=== PATIENT | female | born 1940 | race Caucasian/White ===

== ENCOUNTER → 2017-03-08 | Outpatient (CLI) | payer MEDICARE ==
[~2017-03-08] MED LIST: AMLO5TAB4 PO; ASPI325T4 PO; CEFT2FRO2 IV; CHOL20002 PO; DOCO1CAP2 PO; DOCU250C24 PO; GABA100C8 PO; LISI-170 PO; METH750T2 PO; MORP15TA PO; NITR0.4T8 SL; OMEP-110 PO; ONDA4TAB10 PO; REGADENOSON 0.4 MG/5 ML SYRINGE ONE; SIMV20TA3 PO; UBID100T5 PO
== END | disposition home or self-care (01) ==
LOC: CFH 07:25
PROVIDERS: ATTEND Internal Medicine Cardiovascular Disease
DX: I08.3 Combined rheumatic disorders of mitral, aortic and tricuspid valves (principal); I37.1 Nonrheumatic pulmonary valve insufficiency
CPT/HCPCS: 78452; 93017; 93306; A9502; J2785

== ENCOUNTER 2018-01-22 12:41 | Inpatient (IN) | payer MEDICARE ==
[~2018-01-22] VITALS: Ht 160 cm; Wt 96.8 kg
[~2018-01-22 12:41] MED LIST changes: +ASPI325T17 PO; -ASPI325T4 PO; +GABA-826 PO; -GABA100C8 PO; +NITR0.4T28 SL; -NITR0.4T8 SL; -REGADENOSON 0.4 MG/5 ML SYRINGE ONE
[2018-01-22] MEDS ORDERED: SODIUM CHLORIDE FLUSH 10ML SYR IVF ONE (13:00)
[2018-01-22] MEDS ORDERED: SODIUM CHLORIDE 0.9% 1,000ML IVBOLUS ONE (13:30)
[2018-01-22 13:35] LABS: BASOPHILS # (AUTO) 0.02 x10^3/uL (0-0.1); BASOPHILS % (AUTO) 0 % (0-1); EOSINOPHILS % (AUTO) 2 % (1-7); LYMPHOCYTES # (AUTO) 0.79 x10^3/uL (1-3.4); LYMPHOCYTES % (AUTO) 9 % (22-44); MD NO; MEAN CORPUSCULAR HEMOGLOBIN 29.3 pg (27.0-34.8); MEAN CORPUSCULAR HGB CONC 33.2 g/dL (32.4-35.8); MEAN CORPUSCULAR VOLUME 88.5 fL (80-100); MEAN PLATELET VOLUME 8.2 fL (7.4-10.4); MONOCYTES # (AUTO) 0.53 x10^3/uL (0.2-0.8); MONOCYTES % (AUTO) 6 % (2-9); NEUTROPHILS # (AUTO) 6.97 x10^3/uL (1.8-6.8); NEUTROPHILS % (AUTO) 82 % (42-75); PLATELET COUNT 283 x10^3/uL (130-400); RED CELL DISTRIBUTION WIDTH 14.2 % (9.6-15.2)
[2018-01-22 13:40] LABS: INTERNATIONAL NORMALIZED RATIO 1.06 (0.93-1.1); PROTHROMBIN TIME 10.9 Seconds (9.6-11.5)
[2018-01-22 13:45] LABS: ALANINE AMINOTRANSFERASE 16 U/L (12-78); ANION GAP 12 mmol/L (5-15); CALCIUM 8.2 mg/dL (8.5-10.1); CHLORIDE 112 mmol/L (98-107)
[2018-01-22 13:51] LABS: ALKALINE PHOSPHATASE 64 U/L (45-117); BILIRUBIN,TOTAL 1.1 mg/dL (0.2-1.0); T4 (THYROXINE) 11.1 mcg/dL (4.8-13.9); TOTAL PROTEIN 6.4 g/dL (6.4-8.2); TROPONIN I < 0.015 ng/mL (0.000-0.045)
[2018-01-22] MEDS ORDERED: SODIUM CHLORIDE 0.9%, 500ML IVBOLUS ONE (14:30)
[2018-01-22] MEDS ORDERED: VERAPAMIL 2.5 MG/ML, 2ML ONE (14:52)
[2018-01-22] MEDS ORDERED: VERAPAMIL 2.5 MG/ML, 2ML IVPush ONE (15:00)
[2018-01-22] MEDS ORDERED: PLEASE ENTER HEIGHT AND WEIGHT MC SCH (15:00)
[2018-01-22] MEDS ORDERED: OMNIPAQUE 350 MG/ML, 100ML BOTTLE ONE (15:35)
[2018-01-22] MEDS ORDERED: ONDANSETRON ODT 4 MG PO PRN (16:00)
[2018-01-22] MEDS ORDERED: LACTATED RINGERS 1,000 ML IV SCH (16:00)
[2018-01-22] MEDS ORDERED: LOSA50TA6 PO (16:09)
[2018-01-22] MEDS ORDERED: ROSU5TAB PO (16:09)
[2018-01-22] MEDS ORDERED: ASPI-496 PO (16:09)
[2018-01-22] MEDS ORDERED: NAPR220C2 PO (16:09)
[2018-01-22] MEDS ORDERED: METOPROLOL TARTRATE 25 MG TABLET PO SCH (16:30)
[2018-01-22] MEDS ORDERED: METOPROLOL MC SCH (17:00)
[2018-01-22] MEDS: ENOXAPARIN 100 MG/ML SQ SCH (17:34)
[2018-01-22] MEDS ORDERED: METOPROLOL TARTRATE 25 MG TABLET ONE (17:45)
[2018-01-22] MEDS: METOPROLOL TARTRATE 25 MG TABLET PO SCH ×2 (17:47→21:49)
[2018-01-22] MEDS: SODIUM BICARBONATE 8.4% 75 MEQ in DEXTROSE 5% 1,000 ML IV SCH (18:17)
[2018-01-22 19:12] VITALS: BP 115/74
[2018-01-22] MEDS ORDERED: APIXABAN 5 MG TABLET PO SCH (21:00)
[2018-01-22] MEDS: ASPIRIN 81 MG TABLET EC PO SCH (21:47)
[2018-01-23 01:24] VITALS: BP 103/69
[2018-01-23] MEDS: SODIUM BICARBONATE 8.4% 75 MEQ in DEXTROSE 5% 1,000 ML IV SCH ×2 (04:33→14:30)
[2018-01-23] MEDS: ENOXAPARIN 100 MG/ML SQ SCH (04:33)
[2018-01-23] MEDS: METOPROLOL TARTRATE 25 MG TABLET PO SCH ×3 (04:34→16:35)
[2018-01-23 04:38] VITALS: BP 117/70
[2018-01-23 04:44] LABS: MICROSCOPIC NOT IND
[2018-01-23 04:46] LABS: CULTURE INDICATED? NO
[2018-01-23 05:02] LABS: BASOPHILS # (AUTO) 0.06 x10^3/uL (0-0.1); BASOPHILS % (AUTO) 1 % (0-1); EOSINOPHILS # (AUTO) 0.45 x10^3/uL (0-0.4); EOSINOPHILS % (AUTO) 5 % (1-7); LYMPHOCYTES # (AUTO) 1.72 x10^3/uL (1-3.4); LYMPHOCYTES % (AUTO) 19 % (22-44); MD NO; MEAN CORPUSCULAR HEMOGLOBIN 29.8 pg (27.0-34.8); MEAN CORPUSCULAR HGB CONC 33.9 g/dL (32.4-35.8); MEAN CORPUSCULAR VOLUME 87.8 fL (80-100); MEAN PLATELET VOLUME 8.5 fL (7.4-10.4); MONOCYTES # (AUTO) 0.75 x10^3/uL (0.2-0.8); MONOCYTES % (AUTO) 8 % (2-9); NEUTROPHILS # (AUTO) 5.93 x10^3/uL (1.8-6.8); NEUTROPHILS % (AUTO) 67 % (42-75); PLATELET COUNT 284 x10^3/uL (130-400); RED BLOOD COUNT 4.23 x10^6/uL (3.82-5.3); RED CELL DISTRIBUTION WIDTH 13.9 % (9.6-15.2)
[2018-01-23 05:11] LABS: ALANINE AMINOTRANSFERASE 15 U/L (12-78); ALBUMIN 2.8 g/dL (3.4-5.0); ANION GAP 8 mmol/L (5-15); CALCIUM 7.8 mg/dL (8.5-10.1); CHLORIDE 112 mmol/L (98-107); CREATININE 0.91 mg/dL (0.55-1.02)
[2018-01-23 05:13] LABS: ALKALINE PHOSPHATASE 60 U/L (45-117); BILIRUBIN,TOTAL 0.6 mg/dL (0.2-1.0); TOTAL PROTEIN 5.8 g/dL (6.4-8.2)
[2018-01-23 07:01] VITALS: BP 117/60
[2018-01-23] MEDS: ASPIRIN 81 MG TABLET EC PO SCH (08:40)
[2018-01-23 12:13] VITALS: BP 107/77
[2018-01-23] MEDS ORDERED: POTASSIUM CHLORIDE 20 MEQ TAB.ER.PRT PO ONE (15:00)
[2018-01-23 18:31] VITALS: BP 99/63
[2018-01-23] MEDS: ZOLPIDEM 5MG TABLET PO PRN (20:37)
[2018-01-23] MEDS: APIXABAN 5 MG TABLET PO SCH (20:37)
[2018-01-24 01:22] VITALS: BP 132/76
[2018-01-24] MEDS: METOPROLOL TARTRATE 25 MG TABLET PO SCH ×3 (01:24→17:26)
[2018-01-24 07:20] VITALS: BP 132/92
[2018-01-24] MEDS: APIXABAN 5 MG TABLET PO SCH ×2 (09:11→21:49)
[2018-01-24 13:17] VITALS: BP 110/72
[2018-01-24] MEDS ORDERED: ACETAMINOPHEN 325 MG TABLET PO PRN (15:30)
[2018-01-24 17:26] VITALS: BP 124/75
[2018-01-24 20:27] VITALS: BP 128/91
[2018-01-25 00:20] VITALS: BP 113/74
[2018-01-25] MEDS: ZOLPIDEM 5MG TABLET PO PRN ×2 (00:24→23:40)
[2018-01-25] MEDS: METOPROLOL TARTRATE 25 MG TABLET PO SCH (00:25)
[2018-01-25 07:10] VITALS: BP 104/83
[2018-01-25] MEDS: APIXABAN 5 MG TABLET PO SCH ×2 (09:49→21:02)
[2018-01-25 13:50] VITALS: BP 106/72
[2018-01-25] MEDS: METOPROLOL TARTRATE 100 MG TABLET PO SCH ×2 (16:14→23:40)
[2018-01-25 19:38] VITALS: BP 121/85
[2018-01-25 23:39] VITALS: BP 116/78
[2018-01-26 06:47] VITALS: BP 127/77
[2018-01-26 08:25] VITALS: BP 114/77
[2018-01-26] MEDS: METOPROLOL TARTRATE 100 MG TABLET PO SCH (08:44)
[2018-01-26] MEDS: APIXABAN 5 MG TABLET PO SCH (08:45)
[2018-01-26] MEDS ORDERED: APIX5TAB4 PO (09:57)
[2018-01-26] MEDS ORDERED: APIX5TAB PO (09:57)
[2018-01-26] MEDS ORDERED: METO-99 PO (09:57)
[2018-01-30] MEDS ORDERED: APIXABAN 5 MG TABLET PO SCH (21:00)
== END 2018-01-26 13:40 | disposition home or self-care (01) | DRG 308 ==
LOC: ED 14:53 → EDIP 14:54 → ED 15:22 → 5SO 16:21 → DCLOUNGE 01-26 13:20
PROVIDERS: ADMIT Internal Medicine Pulmonary Disease; ATTEND Internal Medicine Pulmonary Disease
DX: I48.91 Unspecified atrial fibrillation (principal); I26.99 Other pulmonary embolism without acute cor pulmonale; N17.9 Acute kidney failure, unspecified; E87.2 Acidosis; D68.69 Other thrombophilia; I95.9 Hypotension, unspecified; E44.1 Mild protein-calorie malnutrition; I08.0 Rheumatic disorders of both mitral and aortic valves; G47.30 Sleep apnea, unspecified; E66.9 Obesity, unspecified; E78.5 Hyperlipidemia, unspecified; E87.6 Hypokalemia; R73.9 Hyperglycemia, unspecified; I10 Essential (primary) hypertension; K21.9 Gastro-esophageal reflux disease without esophagitis; Z79.01 Long term (current) use of anticoagulants; Z79.82 Long term (current) use of aspirin; Z79.899 Other long term (current) drug therapy; Z82.3 Family history of stroke; Z82.49 Family history of ischemic heart disease and other diseases of the circulatory system; Z87.891 Personal history of nicotine dependence; Z90.49 Acquired absence of other specified parts of digestive tract; Z90.710 Acquired absence of both cervix and uterus; Z96.649 Presence of unspecified artificial hip joint; Z96.652 Presence of left artificial knee joint; Z68.37 Body mass index [BMI] 37.0-37.9, adult
CPT/HCPCS: 36415; 71045; 71275; 80053; 81003; 83735; 84100; 84436; 84443; 84484; 85025; 85610; 93005; 93306; 96361; 96374; J1650; J7070; Q9967; J7030; J7040

== ENCOUNTER 2018-02-01 09:20 | Emergency (ER) | payer MEDICARE ==
[~2018-02-01] VITALS: Ht 160 cm; Wt 88.9 kg
[~2018-02-01 09:20] MED LIST changes: +APIX5TAB PO; +APIX5TAB4 PO; +ASPI-496 PO; +LOSA50TA6 PO; +METO-99 PO; +NAPR220C2 PO; +ROSU5TAB PO
[2018-02-01] MEDS ORDERED: METO-99 PO (10:17)
[2018-02-01 11:05] LABS: BASOPHILS # (AUTO) 0.04 x10^3/uL (0-0.1); BASOPHILS % (AUTO) 1 % (0-1); EOSINOPHILS # (AUTO) 0.07 x10^3/uL (0-0.4); EOSINOPHILS % (AUTO) 1 % (1-7); LYMPHOCYTES % (AUTO) 12 % (22-44); MD NO; MEAN CORPUSCULAR HEMOGLOBIN 29.1 pg (27.0-34.8); MEAN CORPUSCULAR VOLUME 88.2 fL (80-100); MEAN PLATELET VOLUME 8.6 fL (7.4-10.4); MONOCYTES # (AUTO) 0.47 x10^3/uL (0.2-0.8); MONOCYTES % (AUTO) 7 % (2-9); NEUTROPHILS # (AUTO) 5.09 x10^3/uL (1.8-6.8); NEUTROPHILS % (AUTO) 79 % (42-75); PLATELET COUNT 267 x10^3/uL (130-400); RED CELL DISTRIBUTION WIDTH 14.7 % (9.6-15.2)
[2018-02-01 11:09] LABS: INTERNATIONAL NORMALIZED RATIO 1.13 (0.93-1.1); PROTHROMBIN TIME 11.6 Seconds (9.6-11.5)
[2018-02-01 11:14] LABS: ANION GAP 8 mmol/L (5-15); CALCIUM 8.1 mg/dL (8.5-10.1); CHLORIDE 116 mmol/L (98-107)
[2018-02-01 11:20] LABS: ALANINE AMINOTRANSFERASE 70 U/L (12-78); ALKALINE PHOSPHATASE 82 U/L (45-117); BILIRUBIN,TOTAL 0.9 mg/dL (0.2-1.0); CREATININE 1.01 mg/dL (0.55-1.02); TOTAL PROTEIN 6.3 g/dL (6.4-8.2); TROPONIN I < 0.015 ng/mL (0.000-0.045)
[2018-02-01] MEDS ORDERED: DIGOXIN 0.25 MG/ML, 2ML IVPush ONE (11:30)
[2018-02-01] MEDS ORDERED: DIGOXIN 0.25 MG/ML, 2ML ONE (11:33)
[2018-02-01 14:42] VITALS: BP 129/68
== END 2018-02-01 14:53 | disposition home or self-care (01) ==
LOC: ED 12:21
DX: I48.91 Unspecified atrial fibrillation (principal)
CPT/HCPCS: 36415; 71045; 80053; 83880; 84484; 85025; 85610; 93005; 93971; 96374; 99285; J1160

== ENCOUNTER 2018-02-23 23:38 | Inpatient (IN) | payer MEDICARE ==
[~2018-02-23] VITALS: Ht 170.2 cm; Wt 84.3 kg
[~2018-02-23 23:38] MED LIST changes: +DIGO125T PO; +METO-264 PO
[2018-02-24] MEDS ORDERED: PROPOFOL 10 MG/ML, 20ML IVPush ONE
[2018-02-24] MEDS ORDERED: SODIUM CHLORIDE FLUSH 10ML SYR IVF ONE
[2018-02-24 00:20] LABS: BASOPHILS # (AUTO) 0.03 x10^3/uL (0-0.1); BASOPHILS % (AUTO) 0 % (0-1); EOSINOPHILS % (AUTO) 3 % (1-7); LYMPHOCYTES # (AUTO) 1.43 x10^3/uL (1-3.4); LYMPHOCYTES % (AUTO) 19 % (22-44); MD NO; MEAN CORPUSCULAR HEMOGLOBIN 28.5 pg (27.0-34.8); MEAN CORPUSCULAR HGB CONC 32.8 g/dL (32.4-35.8); MEAN CORPUSCULAR VOLUME 86.8 fL (80-100); MEAN PLATELET VOLUME 8.2 fL (7.4-10.4); MONOCYTES # (AUTO) 0.63 x10^3/uL (0.2-0.8); MONOCYTES % (AUTO) 9 % (2-9); NEUTROPHILS # (AUTO) 5.18 x10^3/uL (1.8-6.8); NEUTROPHILS % (AUTO) 69 % (42-75); PLATELET COUNT 238 x10^3/uL (130-400); RED BLOOD COUNT 4.51 x10^6/uL (3.82-5.3); RED CELL DISTRIBUTION WIDTH 14.7 % (9.6-15.2)
[2018-02-24] MEDS ORDERED: PROPOFOL 10 MG/ML, 20ML ONE (00:27)
[2018-02-24 00:31] LABS: ANION GAP 8 mmol/L (5-15); CALCIUM 8.4 mg/dL (8.5-10.1); CHLORIDE 114 mmol/L (98-107); CREATININE 1.01 mg/dL (0.55-1.02)
[2018-02-24 00:32] LABS: ALANINE AMINOTRANSFERASE 14 U/L (12-78)
[2018-02-24 00:34] LABS: ALKALINE PHOSPHATASE 69 U/L (45-117); BILIRUBIN,TOTAL 0.4 mg/dL (0.2-1.0); TOTAL PROTEIN 6.3 g/dL (6.4-8.2)
[2018-02-24 00:38] LABS: MICROSCOPIC AUTO
[2018-02-24 00:42] LABS: CULTURE INDICATED? YES
[2018-02-24] MEDS ORDERED: METOPROLOL 1 MG/ML, 5ML IVPush ONE (01:00)
[2018-02-24] MEDS ORDERED: METOPROLOL 1 MG/ML, 5ML ONE (01:14)
[2018-02-24 02:27] VITALS: BP 128/81
[2018-02-24] MEDS ORDERED: OXYcodone IR 5MG TABLET PO PRN (03:00)
[2018-02-24] MEDS ORDERED: ONDANSETRON ODT 4 MG PO PRN (03:00)
[2018-02-24] MEDS ORDERED: ONDANSETRON 2MG/ML, 2ML IVPush PRN (03:00)
[2018-02-24] MEDS ORDERED: hydrALAzine 20 MG/ML, 1ML IVPush PRN (03:00)
[2018-02-24] MEDS ORDERED: LABETALOL 5MG/ML, 20ML IVPush PRN (03:00)
[2018-02-24] MEDS ORDERED: DOCUSATE 100 MG CAPSULE PO PRN (03:00)
[2018-02-24] MEDS ORDERED: ACETAMINOPHEN 325 MG TABLET PO PRN (03:00)
[2018-02-24] MEDS ORDERED: BISACODYL 10 MG SUPP PR PRN (03:00)
[2018-02-24] MEDS ORDERED: morphine SULFATE 10 MG/ML, 1ML IVPush PRN (03:00)
[2018-02-24] MEDS ORDERED: PROMETHAZINE 25 MG/ML, 1ML IM PRN (03:00)
[2018-02-24] MEDS ORDERED: POLYETHYLENE GLYCOL 17 GM PACKET PO PRN (03:00)
[2018-02-24 03:26] LABS: FREE T4 (FREE THYROXINE) 1.2 ng/dL (0.76-1.46); THYROID STIMULATING HORMONE 2.05 mIU/L (0.358-3.740)
[2018-02-24 03:47] LABS: HEMOGLOBIN A1C 5.6 % (4.2-6.3)
[2018-02-24 06:06] LABS: TROPONIN I 0.024 ng/mL (0.000-0.045)
[2018-02-24 07:36] VITALS: BP 136/76
[2018-02-24 07:40] VITALS: BP 120/78
[2018-02-24] MEDS: METOPROLOL SUCCINATE 100 MG TAB.ER.24H PO SCH (07:41)
[2018-02-24] MEDS: APIXABAN 5 MG TABLET PO SCH ×2 (07:41→21:26)
[2018-02-24] MEDS: CHOLECALCIFEROL 1,000 UNIT TABLET PO SCH ×2 (07:41→21:26)
[2018-02-24] MEDS ORDERED: AMIODARONE 50 MG/ML, 3ML IVPush ONE (10:30)
[2018-02-24] MEDS ORDERED: AMIODARONE 150 MG in DEXTROSE 5% 100 ML IV ONE (11:00)
[2018-02-24] MEDS ORDERED: FILTER 0.22 MICRON IV ONE (11:00)
[2018-02-24 12:11] LABS: TROPONIN I 0.024 ng/mL (0.000-0.045)
[2018-02-24] MEDS: AMIODARONE 200 MG TABLET PO SCH ×3 (12:20→21:26)
[2018-02-24 14:18] VITALS: BP 119/80
[2018-02-24 19:22] VITALS: BP 127/81
[2018-02-24] MEDS ORDERED: LOSARTAN 50MG TABLET PO SCH (21:00)
[2018-02-24] MEDS: TEMPLATE NON-FORMULARY MED. (Rosuvastatin Calcium** (Crestor**) 5 MG) HOMEMEDPO SCH (21:26)
[2018-02-25 04:05] VITALS: BP 123/73
[2018-02-25 05:29] LABS: BASOPHILS # (AUTO) 0.04 x10^3/uL (0-0.1); BASOPHILS % (AUTO) 1 % (0-1); EOSINOPHILS # (AUTO) 0.19 x10^3/uL (0-0.4); EOSINOPHILS % (AUTO) 3 % (1-7); LYMPHOCYTES # (AUTO) 1.36 x10^3/uL (1-3.4); LYMPHOCYTES % (AUTO) 23 % (22-44); MD NO; MEAN CORPUSCULAR HEMOGLOBIN 29.1 pg (27.0-34.8); MEAN CORPUSCULAR HGB CONC 33.5 g/dL (32.4-35.8); MEAN CORPUSCULAR VOLUME 86.7 fL (80-100); MEAN PLATELET VOLUME 8.3 fL (7.4-10.4); MONOCYTES # (AUTO) 0.53 x10^3/uL (0.2-0.8); MONOCYTES % (AUTO) 9 % (2-9); NEUTROPHILS # (AUTO) 3.92 x10^3/uL (1.8-6.8); NEUTROPHILS % (AUTO) 65 % (42-75); PLATELET COUNT 220 x10^3/uL (130-400); RED BLOOD COUNT 4.53 x10^6/uL (3.82-5.3); RED CELL DISTRIBUTION WIDTH 14.7 % (9.6-15.2)
[2018-02-25 05:37] LABS: ALBUMIN 2.7 g/dL (3.4-5.0); ANION GAP 9 mmol/L (5-15); CALCIUM 8.1 mg/dL (8.5-10.1); CHLORIDE 114 mmol/L (98-107)
[2018-02-25 05:42] LABS: ALANINE AMINOTRANSFERASE 12 U/L (12-78); ALKALINE PHOSPHATASE 63 U/L (45-117); BILIRUBIN,TOTAL 0.7 mg/dL (0.2-1.0); CHOL/HDL RATIO 2.5; CHOLESTEROL, TOTAL 124 mg/dL (140-239); HDL CHOL % 40 % (28-40); HDL CHOLESTEROL (DIRECT) 49 mg/dL (40-60); LDL CHOLESTEROL,CALCULATED 56 mg/dL (54-169); LDL/HDL RATIO 1.1 (0.5-3.0); TOTAL PROTEIN 5.7 g/dL (6.4-8.2); TRIGLYCERIDES 95 mg/dL (50-200); VLDL CHOLESTEROL 19 mg/dL (0-25)
[2018-02-25 08:04] VITALS: BP 127/89
[2018-02-25] MEDS: CHOLECALCIFEROL 1,000 UNIT TABLET PO SCH ×2 (08:19→20:49)
[2018-02-25] MEDS: AMIODARONE 200 MG TABLET PO SCH ×3 (08:19→20:50)
[2018-02-25] MEDS: METOPROLOL SUCCINATE 100 MG TAB.ER.24H PO SCH (08:19)
[2018-02-25] MEDS: APIXABAN 5 MG TABLET PO SCH ×2 (08:19→20:50)
[2018-02-25 14:14] VITALS: BP 121/78
[2018-02-25 19:41] VITALS: BP 111/69
[2018-02-25] MEDS: LOSARTAN 50MG TABLET PO SCH (20:49)
[2018-02-25] MEDS: TEMPLATE NON-FORMULARY MED. (Rosuvastatin Calcium** (Crestor**) 5 MG) HOMEMEDPO SCH (20:50)
[2018-02-26 02:03] VITALS: BP 126/85
[2018-02-26 06:50] VITALS: BP 128/80
[2018-02-26] MEDS: APIXABAN 5 MG TABLET PO SCH ×2 (08:26→20:15)
[2018-02-26] MEDS: CHOLECALCIFEROL 1,000 UNIT TABLET PO SCH ×2 (08:26→20:15)
[2018-02-26] MEDS: AMIODARONE 200 MG TABLET PO SCH ×2 (08:26→20:57)
[2018-02-26] MEDS: POTASSIUM CHLORIDE 20 MEQ TAB.ER.PRT PO SCH ×2 (10:06→17:32)
[2018-02-26] MEDS ORDERED: PROPOFOL 10 MG/ML, 20ML ONE (11:09)
[2018-02-26 13:28] VITALS: BP 115/66
[2018-02-26 17:41] LABS: CLOSTRIDIUM DIFFICILE ANTIGEN NEGATIVE; CLOSTRIDIUM DIFFICILE TOXIN NEGATIVE (Negative)
[2018-02-26 18:20] VITALS: BP 123/80
[2018-02-26 19:57] VITALS: BP 123/84
[2018-02-26] MEDS: TEMPLATE NON-FORMULARY MED. (Rosuvastatin Calcium** (Crestor**) 5 MG) HOMEMEDPO SCH (19:59)
[2018-02-26] MEDS: LOSARTAN 50MG TABLET PO SCH (20:15)
[2018-02-27 01:46] VITALS: BP 131/69
[2018-02-27 05:14] LABS: ANION GAP 6 mmol/L (5-15); CHLORIDE 111 mmol/L (98-107)
[2018-02-27 05:15] LABS: CREATININE 1.22 mg/dL (0.55-1.02)
[2018-02-27 07:25] VITALS: BP 118/69
[2018-02-27] MEDS: AMIODARONE 200 MG TABLET PO SCH (09:35)
[2018-02-27] MEDS: POTASSIUM CHLORIDE 20 MEQ TAB.ER.PRT PO SCH (09:35)
[2018-02-27] MEDS: APIXABAN 5 MG TABLET PO SCH (09:36)
[2018-02-27] MEDS: CHOLECALCIFEROL 1,000 UNIT TABLET PO SCH (09:36)
[2018-02-27] MEDS ORDERED: AMIO200T42 PO (11:46)
[2018-02-27] MEDS ORDERED: LOSA50TA2 PO (11:46)
== END 2018-02-27 13:15 | disposition home or self-care (01) | DRG 309 ==
LOC: ED 23:59 → EDIP 02-24 01:06 → 5SO 02-24 02:39 → DCLOUNGE 02-27 12:59
PROVIDERS: ADMIT Internal Medicine; ATTEND Internal Medicine
PROC: 5A2204Z Restoration of Cardiac Rhythm, Single (ICD-10-PCS; principal; 2018-02-26 11:22)
DX: I48.0 Paroxysmal atrial fibrillation (principal); D68.69 Other thrombophilia; I08.0 Rheumatic disorders of both mitral and aortic valves; I10 Essential (primary) hypertension; E78.5 Hyperlipidemia, unspecified; G47.30 Sleep apnea, unspecified; I48.92 Unspecified atrial flutter; K21.9 Gastro-esophageal reflux disease without esophagitis; Z79.01 Long term (current) use of anticoagulants; Z79.899 Other long term (current) drug therapy; Z86.711 Personal history of pulmonary embolism; Z87.891 Personal history of nicotine dependence; Z90.710 Acquired absence of both cervix and uterus; Z96.641 Presence of right artificial hip joint; Z96.652 Presence of left artificial knee joint
CPT/HCPCS: 36415; 80048; 80053; 80061; 81001; 83036; 83735; 84439; 84443; 84484; 85025; 87086; 87324; 92960; 93005; 96374; 99152; J2704; J0282

== ENCOUNTER 2018-08-10 09:18 | Observation (INO) | payer MEDICARE ==
[~2018-08-10] VITALS: Ht 160 cm; Wt 84.6 kg
[2018-08-10] MEDS: SODIUM CHLORIDE 0.9% 1,000 ML IV SCH ×2 (01:00→16:07)
[~2018-08-10 09:18] MED LIST changes: +AMIO200T42 PO; -CHOL20002 PO; +CHOL200052 PO; +LOSA50TA2 PO; -LOSA50TA6 PO; +LOSA50TA7 PO
[2018-08-10] MEDS ORDERED: METO50TA82 PO (09:42)
[2018-08-10] MEDS ORDERED: AMLO10TA6 PO (09:42)
[2018-08-10] MEDS ORDERED: MECLIZINE CHEWABLE 25 MG TAB PO ONE (11:00)
[2018-08-10 11:16] LABS: ALBUMIN 3.2 g/dL (3.4-5.0); ANION GAP 8 mmol/L (5-15); CALCIUM 8.3 mg/dL (8.5-10.1); CHLORIDE 112 mmol/L (98-107)
[2018-08-10] MEDS ORDERED: MECLIZINE CHEWABLE 25 MG TAB ONE (11:18)
[2018-08-10 11:19] LABS: ALANINE AMINOTRANSFERASE 19 U/L (12-78); CREATININE 0.78 mg/dL (0.55-1.02)
[2018-08-10 11:23] LABS: ALKALINE PHOSPHATASE 62 U/L (45-117); BILIRUBIN,TOTAL 0.5 mg/dL (0.2-1.0); TOTAL PROTEIN 6.5 g/dL (6.4-8.2); TROPONIN I 0.042 ng/mL (0.000-0.045)
[2018-08-10 12:00] LABS: BASOPHILS # (AUTO) 0.02 x10^3/uL (0-0.1); BASOPHILS % (AUTO) 0 % (0-1); EOSINOPHILS # (AUTO) 0.01 x10^3/uL (0-0.4); EOSINOPHILS % (AUTO) 0 % (1-7); LYMPHOCYTES # (AUTO) 0.67 x10^3/uL (1-3.4); LYMPHOCYTES % (AUTO) 9 % (22-44); MD NO; MEAN CORPUSCULAR HEMOGLOBIN 29.4 pg (27.0-34.8); MEAN CORPUSCULAR HGB CONC 33.2 g/dL (32.4-35.8); MEAN CORPUSCULAR VOLUME 88.5 fL (80-100); MEAN PLATELET VOLUME 8.3 fL (7.4-10.4); MONOCYTES # (AUTO) 0.23 x10^3/uL (0.2-0.8); MONOCYTES % (AUTO) 3 % (2-9); NEUTROPHILS # (AUTO) 6.73 x10^3/uL (1.8-6.8); NEUTROPHILS % (AUTO) 88 % (42-75); PLATELET COUNT 239 x10^3/uL (130-400); RED BLOOD COUNT 4.73 x10^6/uL (3.82-5.3); RED CELL DISTRIBUTION WIDTH 14.6 % (9.6-15.2)
[2018-08-10 14:22] VITALS: BP 168/77
[2018-08-10] MEDS ORDERED: ONDANSETRON 2MG/ML, 2ML IVPush PRN (14:30)
[2018-08-10] MEDS ORDERED: ACETAMINOPHEN 325 MG TABLET PO PRN (14:30)
[2018-08-10] MEDS ORDERED: ONDANSETRON ODT 4 MG PO PRN (14:30)
[2018-08-10] MEDS ORDERED: BISACODYL 10 MG SUPP PR PRN (14:30)
[2018-08-10] MEDS ORDERED: POLYETHYLENE GLYCOL 17 GM PACKET PO PRN (14:30)
[2018-08-10] MEDS ORDERED: DOCUSATE 100 MG CAPSULE PO PRN (14:30)
[2018-08-10] MEDS ORDERED: ENALAPRILAT 1.25 MG/ML, 2ML IVPush PRN (14:30)
[2018-08-10 15:28] LABS: THYROID STIMULATING HORMONE 1.44 mIU/L (0.358-3.740)
[2018-08-10 15:41] VITALS: BP 119/72
[2018-08-10 15:43] VITALS: BP 129/71
[2018-08-10 15:46] VITALS: BP 133/79
[2018-08-10] MEDS: MECLIZINE CHEWABLE 25 MG TAB PO SCH ×2 (16:00→23:56)
[2018-08-10] MEDS: ASPIRIN 81 MG TABLET EC PO SCH (16:00)
[2018-08-10 16:48] LABS: MICROSCOPIC NOT IND
[2018-08-10 16:53] LABS: CULTURE INDICATED? NO
[2018-08-10 18:21] VITALS: BP 147/70
[2018-08-10 18:51] LABS: TROPONIN I 0.045 ng/mL (0.000-0.045)
[2018-08-10] MEDS ORDERED: ATORVASTATIN 10 MG TABLET PO SCH (21:00)
[2018-08-10] MEDS ORDERED: LOSARTAN 50MG TABLET PO SCH (21:00)
[2018-08-10] MEDS: APIXABAN 5 MG TABLET PO SCH (21:19)
[2018-08-11] MEDS: SODIUM CHLORIDE 0.9% 1,000 ML IV SCH ×3 (00:05→16:00)
[2018-08-11 04:55] VITALS: BP_SYST 111; BP_SYST 116; BP_SYST 124; BP_DIAS 69; BP_DIAS 71; BP_DIAS 76
[2018-08-11] MEDS: ASPIRIN 81 MG TABLET EC PO SCH (05:03)
[2018-08-11 05:11] LABS: BASOPHILS # (AUTO) 0.03 x10^3/uL (0-0.1); BASOPHILS % (AUTO) 1 % (0-1); EOSINOPHILS # (AUTO) 0.11 x10^3/uL (0-0.4); EOSINOPHILS % (AUTO) 2 % (1-7); LYMPHOCYTES # (AUTO) 1.28 x10^3/uL (1-3.4); LYMPHOCYTES % (AUTO) 22 % (22-44); MD NO; MEAN CORPUSCULAR HEMOGLOBIN 29.7 pg (27.0-34.8); MEAN CORPUSCULAR HGB CONC 32.8 g/dL (32.4-35.8); MEAN CORPUSCULAR VOLUME 90.4 fL (80-100); MEAN PLATELET VOLUME 8.6 fL (7.4-10.4); MONOCYTES # (AUTO) 0.51 x10^3/uL (0.2-0.8); MONOCYTES % (AUTO) 9 % (2-9); NEUTROPHILS # (AUTO) 3.97 x10^3/uL (1.8-6.8); NEUTROPHILS % (AUTO) 67 % (42-75); PLATELET COUNT 196 x10^3/uL (130-400); RED BLOOD COUNT 4.14 x10^6/uL (3.82-5.3); RED CELL DISTRIBUTION WIDTH 14.2 % (9.6-15.2)
[2018-08-11 05:15] LABS: ANION GAP 4 mmol/L (5-15); CALCIUM 7.6 mg/dL (8.5-10.1); CHLORIDE 117 mmol/L (98-107); CREATININE 0.87 mg/dL (0.55-1.02)
[2018-08-11 07:45] VITALS: BP 136/70
[2018-08-11 07:47] VITALS: BP 151/75
[2018-08-11 07:49] VITALS: BP 146/83
[2018-08-11] MEDS: APIXABAN 5 MG TABLET PO SCH (09:15)
[2018-08-11] MEDS: MECLIZINE CHEWABLE 25 MG TAB PO SCH (09:16)
[2018-08-11] MEDS ORDERED: GADOBUTROL 10 MMOL/10 ML PFS ONE (10:58)
[2018-08-11 14:24] VITALS: BP 168/80
[2018-08-11] MEDS ORDERED: MECL-76 PO (17:06)
== END 2018-08-11 17:41 | disposition home or self-care (01) ==
LOC: ED 13:13 → EDIP 13:14 → INTOOBSV 13:14 → 5SO 14:18
PROVIDERS: ADMIT Internal Medicine; ATTEND Internal Medicine
DX: R42 Dizziness and giddiness (principal); R53.1 Weakness; R00.1 Bradycardia, unspecified; I11.0 Hypertensive heart disease with heart failure; I50.30 Unspecified diastolic (congestive) heart failure; I48.91 Unspecified atrial fibrillation; I08.0 Rheumatic disorders of both mitral and aortic valves; G47.00 Insomnia, unspecified; E78.5 Hyperlipidemia, unspecified; D68.59 Other primary thrombophilia; K21.9 Gastro-esophageal reflux disease without esophagitis; M17.11 Unilateral primary osteoarthritis, right knee; Z79.01 Long term (current) use of anticoagulants; Z86.711 Personal history of pulmonary embolism; Z96.652 Presence of left artificial knee joint; Z88.0 Allergy status to penicillin; Z88.2 Allergy status to sulfonamides; Z23 Encounter for immunization
CPT/HCPCS: 36415; 70450; 70553; 80048; 80053; 81003; 83605; 83735; 84443; 84484; 85025; 90656; 93005; 93306; 93880; 96360; 96361; A9585; G0008; G0378; J7030

== ENCOUNTER 2019-09-02 03:41 | Emergency (ER) | payer MEDICARE ==
[~2019-09-02] VITALS: Ht 160 cm; Wt 82.1 kg
[~2019-09-02 03:41] MED LIST changes: +AMLO10TA8 PO; +LOSA50TA14 PO; -LOSA50TA7 PO; +MECL-76 PO; +METO50TA82 PO
--- NOTE | 2019-09-02 04:37 | NUR ---
THE PT IS ON ELIQUIS FOR HX OF AFIB.
--- NOTE | 2019-09-02 05:05 | NUR ---
CC UA COLLECTED AND SENT TO THE LAB.
[2019-09-02 05:14] LABS: BASOPHILS # (AUTO) 0.03 x10^3/uL (0-0.1); BASOPHILS % (AUTO) 1 % (0-1); EOSINOPHILS # (AUTO) 0.11 x10^3/uL (0-0.4); EOSINOPHILS % (AUTO) 2 % (1-7); LYMPHOCYTES # (AUTO) 0.94 x10^3/uL (1-3.4); LYMPHOCYTES % (AUTO) 16 % (22-44); MD NO; MEAN CORPUSCULAR HEMOGLOBIN 28.8 pg (27.0-34.8); MEAN CORPUSCULAR HGB CONC 32.7 g/dL (32.4-35.8); MEAN CORPUSCULAR VOLUME 88.1 fL (80-100); MEAN PLATELET VOLUME 8.3 fL (7.4-10.4); MONOCYTES # (AUTO) 0.46 x10^3/uL (0.2-0.8); MONOCYTES % (AUTO) 8 % (2-9); NEUTROPHILS # (AUTO) 4.49 x10^3/uL (1.8-6.8); NEUTROPHILS % (AUTO) 74 % (42-75); PLATELET COUNT 262 x10^3/uL (130-400); RED BLOOD COUNT 3.98 x10^6/uL (3.82-5.3); RED CELL DISTRIBUTION WIDTH 14.7 % (9.6-15.2)
[2019-09-02 05:27] LABS: ALBUMIN 3.3 g/dL (3.4-5.0); ANION GAP 7 mmol/L (5-15); CALCIUM 8.4 mg/dL (8.5-10.1); CHLORIDE 115 mmol/L (98-107); CREATININE 1.13 mg/dL (0.55-1.02)
[2019-09-02 05:32] LABS: MICROSCOPIC INDICATED
[2019-09-02 05:34] LABS: CULTURE INDICATED? NO
--- NOTE | 2019-09-02 05:56 | NUR ---
PT AMBULATORY TO THE BATHROOM WITH STEADY GAIT
--- NOTE | 2019-09-02 06:53 | NUR ---
report to vijaya marks
--- NOTE | 2019-09-02 06:54 | NUR ---
RECEIVED BEDSIDE REPORT FROM RENAE BEAN. PT RESTING ON GURNEY. NO ACUTE DISTRESS NOTED. BEDSIDE. PT STATES SHE HAS HAD INCREASED MEREDITH BLOOD WHEN URINATING X 3 DAYS. STATED SHE HAD KNEE REPLACEMENT 6 WEEKS AGO AND PT HAS AFIB.
--- NOTE | 2019-09-02 07:20 | NUR ---
CT WAITING FOR IV ACCESS
--- NOTE | 2019-09-02 08:07 | NUR ---
PIV ESTABLISHED. CT AWARE. CHARLINEN.
--- NOTE | 2019-09-02 08:11 | NUR ---
CT AWARE PIV ESTABLISHED.
--- NOTE | 2019-09-02 08:17 | NUR ---
CT THEN CBI
--- NOTE | 2019-09-02 08:32 | NUR ---
PT TO IMAGING.
--- NOTE | 2019-09-02 08:54 | NUR ---
PT BACK FROM CT
--- NOTE | 2019-09-02 09:04 | NUR ---
BEDSIDE REPORT TO RENAE CASTILLO.
--- NOTE | 2019-09-02 09:06 | NUR ---
BEDSIDE REPORT RECEIVED FROM RENAE OWENS. PLAN OF CARE DISCUSSED WITH HEALTH CARE STAFF.
[2019-09-02 09:24] VITALS: BP 128/71
--- NOTE | 2019-09-02 09:27 | NUR ---
RIVAS PLACED BY THIS RN WITH STERILE TECHNIQUE. PT TOLERATED WELL. RIVAS CATHETER FLUSHED PER ORDERS, NO CLOTS VISIBLE. AND PA UPDATED ON PT CONDITION, PLAN FOR D/C.
--- NOTE | 2019-09-02 10:16 | NUR ---
UROLOGY PA AT BEDSIDE FOR EXAM. PLAN TO D/C HOME AND FOLLOW UP OUTPATIENT FOR CYSTOSCOPY.
[2019-09-02] MEDS ORDERED: OMNIPAQUE 350 MG/ML, 150 ML BOTTLE ONE (10:20)
--- NOTE | 2019-09-02 10:38 | NUR ---
RIVAS REMOVED BY THIS RN PER UROLOGY PA ORDERS. PIV REMOVED TIP INTACT. THIS RN TO ADDRESS PT'S CONCERN ABOUT CONTINUING ELIQUIS WITH ERP.
--- NOTE | 2019-09-02 10:52 | NUR ---
TO PAGE PT'S HEDIS ABSTRACTOR REGARDING ELIQUIS PER PT REQUEST. CASH MANAGEMENT SPECIALIST UPDATED.
--- NOTE | 2019-09-02 11:16 | NUR ---
SPOKE WITH CARDIOLOGY REGARDING HOME DOSE OF MD JOEY TO UPDATE RN.
--- NOTE | 2019-09-02 11:20 | NUR ---
PT UPDATED ON POC. AT BEDSIDE.
--- NOTE | 2019-09-02 11:47 | NUR ---
Patient/Caregiver given discharge instructions and they have confirmed that they understand the instructions. Patient ambulatory with steady gait.
== END 2019-09-02 11:36 | disposition home or self-care (01) ==
LOC: ED 05:15
DX: R31.0 Gross hematuria (principal); E78.00 Pure hypercholesterolemia, unspecified; E78.5 Hyperlipidemia, unspecified; I48.92 Unspecified atrial flutter; K21.9 Gastro-esophageal reflux disease without esophagitis; I10 Essential (primary) hypertension; Z87.891 Personal history of nicotine dependence
CPT/HCPCS: 36415; 51702; 74178; 80048; 81001; 82040; 85025; 99284; Q9967

== ENCOUNTER 2021-02-22 11:31 | Inpatient (IN) | payer MEDICARE ==
[~2021-02-22] VITALS: Ht 157.5 cm; Wt 83.8 kg
[~2021-02-22 11:31] MED LIST changes: +AMLO-211 PO; -AMLO10TA8 PO; -DIGO125T PO; +DIGO125T85 PO; +METH-640 PO; -METH750T2 PO; +SIMV20TA19 PO; -SIMV20TA3 PO
--- NOTE | 2021-02-22 11:50 | NUR ---
assumed care of pt. pt sent here from for evaluation of A-fib. pt reports that she has a hx of A-Fib but that she is not in it all of the time. pt reports that the last time she was in it, she had a cardioversion pt reports that she has been complaint with her Eliquis. pt denies CP, denies SOB, reports that she "just doesn't feel right". pink warm and dry. KATJA pt at bedside states that pt has a witnessed syncopal episode abtou 2 weeks ago and was seen at [facility] for it. no B[place] no dizziness
--- NOTE | 2021-02-22 12:00 | NUR ---
Dr. Yung at bedside for eval
[2021-02-22] MEDS ORDERED: DILTIAZEM 5 MG/ML, 5ML ONE (12:03)
--- NOTE | 2021-02-22 12:15 | NUR ---
CXR at bedside
--- NOTE | 2021-02-22 12:19 | NUR ---
lab at bedside to draw
--- NOTE | 2021-02-22 12:23 | NUR ---
report to Carine MACDONALD for lunch
[2021-02-22] MEDS ORDERED: SODIUM CHLORIDE FLUSH 10ML SYR IVF ONE (12:30)
[2021-02-22] MEDS ORDERED: DILTIAZEM 5 MG/ML, 5ML IVPush ONE (12:30)
[2021-02-22] MEDS ORDERED: SODIUM CHLORIDE 0.9% 1,000ML IVBOLUS ONE (12:30)
[2021-02-22 12:39] LABS: BASOPHILS % (AUTO) 1 % (0-1); EOSINOPHILS % (AUTO) 1 % (1-7); LYMPHOCYTES % (AUTO) 11 % (22-44); MEAN CORPUSCULAR HEMOGLOBIN 29.7 pg (27.0-34.8); MEAN CORPUSCULAR HGB CONC 33.2 g/dL (32.4-35.8); MEAN PLATELET VOLUME 8.6 fL (7.4-10.4); MONOCYTES % (AUTO) 6 % (2-9); NEUTROPHILS % (AUTO) 82 % (42-75); PLATELET COUNT 211 x10^3/uL (130-400); RED BLOOD COUNT 4.93 x10^6/uL (3.82-5.3); RED CELL DISTRIBUTION WIDTH 14.5 % (9.6-15.2)
[2021-02-22 12:41] LABS: ALANINE AMINOTRANSFERASE 15 U/L (12-78); ALBUMIN 3.6 g/dL (3.4-5.0); ANION GAP 7 mmol/L (5-15); CALCIUM 8.8 mg/dL (8.5-10.1); CHLORIDE 112 mmol/L (98-107); CREATININE 1.28 mg/dL (0.55-1.02); MD NO
[2021-02-22 12:45] LABS: ALKALINE PHOSPHATASE 63 U/L (45-117); BILIRUBIN,TOTAL 0.8 mg/dL (0.2-1.0); TOTAL PROTEIN 6.8 g/dL (6.4-8.2); TROPONIN I < 0.015 ng/mL (0.000-0.045)
[2021-02-22 12:49] LABS: INTERNATIONAL NORMALIZED RATIO 1.17 (0.93-1.1); PROTHROMBIN TIME 12.5 Seconds (9.6-11.5)
--- NOTE | 2021-02-22 13:05 | NUR ---
pt sitting up on gurney resting in position of comfort. no c/o at this time SO at bedside. pt requesting meal tray. pt advised to remain NPO at this time
--- NOTE | 2021-02-22 13:46 | NUR ---
pt to be admitted. pt has been updated on POC
[2021-02-22] MEDS ORDERED: METO200T47 PO (14:11)
[2021-02-22] MEDS: PLEASE ENTER HEIGHT AND WEIGHT MC SCH ×2 (14:30→22:30)
[2021-02-22] MEDS ORDERED: PROPOFOL 10 MG/ML, 20ML IVPush ONE (14:30)
--- NOTE | 2021-02-22 14:30 | NUR ---
no changes. pt resting in posiiton of comfort. updated on POC
--- NOTE | 2021-02-22 15:00 | NUR ---
pt to have cardioversion with procedural sedation consent obtained pt updated on POC procedural sedation packet initiated
[2021-02-22] MEDS ORDERED: PROPOFOL 10 MG/ML, 20ML ONE (15:09)
--- NOTE | 2021-02-22 15:20 | NUR ---
Dr. Yung at bedside Time Out to procedure completed refer to procedural sedation packet
--- NOTE | 2021-02-22 16:02 | NUR ---
pt resting. no c/o at this time admit order hsa been recieved with bed assignment. attempting to call report
--- NOTE | 2021-02-22 16:07 | NUR ---
report called to Charlene MACDONALD
[2021-02-22 16:40] VITALS: BP 123/64
[2021-02-22] MEDS ORDERED: BISACODYL 10 MG SUPP PR PRN (17:30)
[2021-02-22] MEDS ORDERED: ACETAMINOPHEN 325 MG TABLET PO PRN (17:30)
[2021-02-22] MEDS ORDERED: ONDANSETRON ODT 4 MG PO PRN (17:30)
[2021-02-22] MEDS ORDERED: POLYETHYLENE GLYCOL 17 GM PACKET PO PRN (17:30)
[2021-02-22] MEDS ORDERED: DOCUSATE 100 MG CAPSULE PO PRN (17:30)
[2021-02-22] MEDS: SODIUM CHLORIDE 0.9% 1,000 ML IV SCH (17:30)
[2021-02-22 19:16] LABS: TROPONIN I < 0.015 ng/mL (0.000-0.045)
[2021-02-22] MEDS ORDERED: CEFTRIAXONE 1,000 MG in DEXTROSE 5% 50 ML IVPB SCH (19:30)
[2021-02-22 20:33] VITALS: BP 116/59
[2021-02-22] MEDS: APIXABAN 5 MG TABLET PO SCH (21:00)
[2021-02-22] MEDS ORDERED: LOSARTAN 100 MG TAB PO SCH (21:00)
[2021-02-22] MEDS ORDERED: MELATONIN 5 MG TABLET PO PRN (21:00)
[2021-02-22] MEDS ORDERED: AMLODIPINE 10 MG TAB PO SCH (21:00)
[2021-02-22] MEDS ORDERED: ATORVASTATIN 20 MG TABLET PO SCH (21:00)
[2021-02-22 21:52] LABS: MICROSCOPIC AUTO
[2021-02-22 23:59] LABS: TROPONIN I 0.018 ng/mL (0.000-0.045)
[2021-02-23 03:18] VITALS: BP 110/54
[2021-02-23 04:35] LABS: BASOPHILS % (AUTO) 1 % (0-1); EOSINOPHILS % (AUTO) 3 % (1-7); LYMPHOCYTES % (AUTO) 19 % (22-44); MEAN CORPUSCULAR HEMOGLOBIN 29.6 pg (27.0-34.8); MEAN CORPUSCULAR HGB CONC 33.7 g/dL (32.4-35.8); MEAN PLATELET VOLUME 8.7 fL (7.4-10.4); MONOCYTES % (AUTO) 9 % (2-9); NEUTROPHILS % (AUTO) 68 % (42-75); PLATELET COUNT 164 x10^3/uL (130-400); RED CELL DISTRIBUTION WIDTH 14.4 % (9.6-15.2)
[2021-02-23 04:36] LABS: MD NO
[2021-02-23 04:43] LABS: ALBUMIN 2.9 g/dL (3.4-5.0); ANION GAP 7 mmol/L (5-15); CALCIUM 7.9 mg/dL (8.5-10.1); CHLORIDE 116 mmol/L (98-107)
[2021-02-23 04:52] LABS: ALANINE AMINOTRANSFERASE 13 U/L (12-78); ALKALINE PHOSPHATASE 54 U/L (45-117); BILIRUBIN,TOTAL 0.7 mg/dL (0.2-1.0); CHOL/HDL RATIO 2.1; CHOLESTEROL, TOTAL 122 mg/dL (140-239); FREE T4 (FREE THYROXINE) 1.18 ng/dL (0.76-1.46); HDL CHOL % 47 % (28-40); HDL CHOLESTEROL (DIRECT) 57 mg/dL (40-60); LDL CHOLESTEROL,CALCULATED 48 mg/dL (54-169); LDL/HDL RATIO 0.8 (0.5-3.0); TOTAL PROTEIN 5.6 g/dL (6.4-8.2); TRIGLYCERIDES 85 mg/dL (50-200); VLDL CHOLESTEROL 17 mg/dL (0-25)
[2021-02-23] MEDS ORDERED: METOPROLOL SUCCINATE 25 MG TAB.ER.24H PO SCH (06:00)
[2021-02-23] MEDS: PLEASE ENTER HEIGHT AND WEIGHT MC SCH ×2 (06:30→14:30)
[2021-02-23] MEDS: SODIUM CHLORIDE 0.9% 1,000 ML IV SCH (06:50)
[2021-02-23 07:18] VITALS: BP 120/70
[2021-02-23] MEDS: APIXABAN 5 MG TABLET PO SCH (08:33)
[2021-02-23 13:55] VITALS: BP 131/78
[2021-02-23] MEDS ORDERED: CEFD300C37 PO (16:11)
== END 2021-02-23 16:40 | disposition home or self-care (01) | DRG 690 ==
LOC: ED 12:58 → EDIP 14:08 → 5SO 16:24 → DCLOUNGE 02-23 16:37
PROVIDERS: ADMIT Internal Medicine; ATTEND Internal Medicine
PROC: 5A2204Z Restoration of Cardiac Rhythm, Single (ICD-10-PCS; principal; 2021-02-22)
DX: N39.0 Urinary tract infection, site not specified (principal); N17.9 Acute kidney failure, unspecified; I48.0 Paroxysmal atrial fibrillation; Z88.0 Allergy status to penicillin; Z88.2 Allergy status to sulfonamides; Z88.8 Allergy status to other drugs, medicaments and biological substances; E78.00 Pure hypercholesterolemia, unspecified; E78.5 Hyperlipidemia, unspecified; E86.0 Dehydration; I10 Essential (primary) hypertension; I08.0 Rheumatic disorders of both mitral and aortic valves; Z79.01 Long term (current) use of anticoagulants; Z79.899 Other long term (current) drug therapy; Z86.711 Personal history of pulmonary embolism; Z87.440 Personal history of urinary (tract) infections; Z87.891 Personal history of nicotine dependence; Z96.649 Presence of unspecified artificial hip joint; Z96.653 Presence of artificial knee joint, bilateral; K21.9 Gastro-esophageal reflux disease without esophagitis
CPT/HCPCS: 36415; 71045; 80053; 80061; 81001; 83605; 83735; 84100; 84439; 84443; 84484; 85025; 85610; 85730; 87077; 87086; 87186; 93005; 93306; G0378; J0696; J7030

== ENCOUNTER 2021-03-18 11:06 | Emergency (ER) | payer MEDICARE ==
[~2021-03-18] VITALS: Ht 160 cm; Wt 80.6 kg
[~2021-03-18 11:06] MED LIST changes: +CEFD300C37 PO; +METO200T47 PO; +NITR100C6 PO; +SOTA80TA18 PO
--- NOTE | 2021-03-18 11:53 | NUR ---
PIV PLACED, LABS DRAWN.
[2021-03-18] MEDS ORDERED: SODIUM CHLORIDE FLUSH 10ML SYR IVF ONE (12:00)
--- NOTE | 2021-03-18 12:29 | NUR ---
PT AMBULATED TO RESTROOM WITH SHUFFLING BUT STEADY GAIT TO PROVIDE URINE SAMPLE. UA COLLECTED AND SENT TO LAB. LABS COLLECTED BY PLASTICS ENGINEER.
[2021-03-18 12:34] LABS: BASOPHILS % (AUTO) 1 % (0-1); EOSINOPHILS % (AUTO) 1 % (1-7); LYMPHOCYTES % (AUTO) 13 % (22-44); MD NO; MEAN CORPUSCULAR HEMOGLOBIN 29.6 pg (27.0-34.8); MEAN PLATELET VOLUME 9.6 fL (7.4-10.4); MONOCYTES % (AUTO) 6 % (2-9); NEUTROPHILS % (AUTO) 79 % (42-75); PLATELET COUNT 191 x10^3/uL (130-400); RED BLOOD COUNT 4.72 x10^6/uL (3.82-5.3); RED CELL DISTRIBUTION WIDTH 14.5 % (9.6-15.2)
[2021-03-18 12:35] VITALS: BP 130/65
[2021-03-18 12:44] LABS: MICROSCOPIC INDICATED
[2021-03-18 12:46] LABS: ALBUMIN 3.4 g/dL (3.4-5.0); ANION GAP 4 mmol/L (5-15); CALCIUM 8.5 mg/dL (8.5-10.1); CHLORIDE 115 mmol/L (98-107)
[2021-03-18 12:52] LABS: ALANINE AMINOTRANSFERASE 19 U/L (12-78); ALKALINE PHOSPHATASE 57 U/L (45-117); BILIRUBIN,TOTAL 0.8 mg/dL (0.2-1.0); CREATININE 0.94 mg/dL (0.55-1.02); TOTAL PROTEIN 6.6 g/dL (6.4-8.2); TROPONIN I < 0.015 ng/mL (0.000-0.045)
--- NOTE | 2021-03-18 13:17 | NUR ---
ALL RESULTS ARE BACK AT THIS TIME. CHART UP FOR RECHECK.
--- NOTE | 2021-03-18 13:59 | NUR ---
ERMD AT BEDSIDE TO UPDATE PT ON POC.
== END 2021-03-18 14:54 | disposition home or self-care (01) ==
LOC: ED 11:53
DX: R53.1 Weakness (principal); R00.1 Bradycardia, unspecified; N30.00 Acute cystitis without hematuria; R07.9 Chest pain, unspecified; I10 Essential (primary) hypertension; I48.91 Unspecified atrial fibrillation
CPT/HCPCS: 36415; 71045; 80053; 81001; 83880; 84484; 85025; 87077; 87086; 87186; 93005; 99285